=== PATIENT | female | born 1970 | race Caucasian/White ===

== ENCOUNTER 2024-12-10 11:51 | Emergency (ER) | payer OTHER ==
[~2024-12-10] VITALS: Ht 170.2 cm; Wt 75.7 kg
[2024-12-10 11:52] VITALS: BP 132/70
[2024-12-10 12:20] LABS: PLATELET COUNT (AUTO) 236 K/uL (179-408); RED BLOOD CELL COUNT(AUTO) 4.25 MIL/uL (3.63-4.92); RED CELL DISTRIBUTION WIDTH 13.7 % (12.3-17.7); WHITE BLOOD COUNT (AUTO) 5.3 K/uL (3.8-11.8)
[2024-12-10 12:47] LABS: CREATININE 0.7 mg/dL (0.6-1.3); SODIUM SERUM 141.0 mmol/L (136-145); UREA NITROGEN, BLOOD 16.0 mg/dL (7-18)
[2024-12-10 12:50] LABS: *BILIRUBIN,URIN NEGATIVE (NEGATIVE); *CLARITY,URINE CLEAR (CLEAR); *COLOR,URINE YELLOW (YELLOW); *KETONES,URINE NEGATIVE (NEGATIVE); *PROTEIN,URINE NEGATIVE (NEGATIVE); *UROBILINOGEN,URINE 0.2 E.U./dl (NORMAL); LEUKOCYTE ESTERASE ,URINE NEGATIVE (NEGATIVE); NITRITE, URINE NEGATIVE (NEGATIVE); UGLUCOSE NEGATIVE (NEGATIVE)
[2024-12-10 12:54] LABS: ASPARTATE AMINOTRANSFERASE 19.0 U/L (15-37); TOTAL PROTEIN, SERUM 7.5 g/dL (6.4-8.2)
[2024-12-10 12:56] LABS: *BLOOD, URINE TRACE (NEGATIVE)
[2024-12-10 12:59] LABS: *URINE HCG, QUAL NEGATIVE (NEGATIVE)
[2024-12-10 13:08] LABS: SQUAMOUS EPITHELIAL CELL,UR FEW /HPF (NONE SEEN)
[2024-12-10] MEDS ORDERED: NAPR500T6 PO (13:57)
[2024-12-10] MEDS ORDERED: OXYC-128 PO (13:57)
[2024-12-10 14:18] VITALS: BP 126/74; O2SAT 96
== END 2024-12-10 14:18 | disposition home or self-care (01) ==
LOC: ER 11:51
DX: M25.562 Pain in left knee (principal); R10.11 Right upper quadrant pain
CPT/HCPCS: 36415; 83690; 84703; 85025; A4606; A4663